=== PATIENT | female | born 1995 | race Caucasian/White ===

== ENCOUNTER 2016-12-28 06:50 | Day surgery (SDC) ==
[2016-12-28] MEDS ORDERED: PEPCID ONE (07:31)
[2016-12-28] MEDS ORDERED: KEFZOL 1 GM/D5W 50 ML ONE (07:31)
[2016-12-28] MEDS ORDERED: LR 1,000 ML ONE (07:31)
[2016-12-28] MEDS ORDERED: REGLAN ONE (07:31)
[2016-12-28] MEDS ORDERED: TRANSDERM-SCOP ONE (07:31)
[2016-12-28] MEDS ORDERED: MARCAINE 0.5% PF ONE (08:30)
[2016-12-28] MEDS ORDERED: XYLOCAINE 1% ONE (08:30)
[2016-12-28] MEDS ORDERED: LR 500 ML ONE (11:00)
[2016-12-28] MEDS: DILAUDID ONE ×4 (11:00→11:15)
[2016-12-28] MEDS ORDERED: PERCOCET-5 ONE (11:47)
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
[2016-12-28 12:34] VITALS: BP 99/76
[2016-12-28] MEDS ORDERED: DIPRIVAN 1% ONE (13:37)
[2016-12-28] MEDS ORDERED: FENTANYL ONE (13:38)
[2016-12-28] MEDS ORDERED: EPHEDRINE ONE (13:55)
[2016-12-28] MEDS ORDERED: QUELICIN (DOSE) ONE (13:55)
[2016-12-28] MEDS ORDERED: DECADRON ONE (13:55)
[2016-12-28] MEDS ORDERED: ZOFRAN ONE (13:55)
[2016-12-28] MEDS ORDERED: NORCURON ONE (13:55)
== END 2016-12-28 12:40 | disposition home or self-care (01) ==
LOC: OPS 06:50
PROVIDERS: ATTEND Orthopaedic Surgery
DX: S42.001A Fracture of unspecified part of right clavicle, initial encounter for closed fracture (principal)
CPT/HCPCS: 76000; 81025; J0330; J0690; J1100; J1170; J2405; J3010; J7120; S0020